=== PATIENT | female | born 1985 | race Caucasian/White ===

== ENCOUNTER 2016-05-02 14:24 | Emergency (ER) | payer SELFPAY ==
[~2016-05-02] VITALS: Ht 167.6 cm; Wt 70.0 kg
[2016-05-02 14:31] VITALS: Ht 167.6 cm; Wt 70.0 kg
[2016-05-02] MEDS ORDERED: SOD CHLORIDE 0.9% 1,000 ML IV STA (14:47)
[2016-05-02] MEDS ORDERED: morphine 2 MG INJ IV STA (14:47)
[2016-05-02] MEDS ORDERED: ACETAMINOPHEN 500 MG TAB PO STA (14:47)
[2016-05-02] MEDS ORDERED: ONDANSETRON 4 MG INJ IV STA ×2 (14:47→14:50)
--- NOTE | 2016-05-02 14:50 | ERD ---
ER Documentation Chief Complaint Date/Time DATE: 05/02/16 TIME: 14:48 Chief Complaint bilateral flank pain and vomiting since last night HPI 30-year-old female otherwise healthy comes in with right-sided flank pain, nausea, vomiting fever that started last night. Patient reports nonbloody nonbilious emesis multiple times throughout the night associated with right flank pain. Her pain is rated 10 out of 10, achy, constant. She denies cough, URI symptoms. ROS All systems reviewed and are negative except as per history of present illness. Medications Home Meds Active Scripts Ondansetron (Ondansetron Odt) 4 Mg Tab.rapdis, 4 MG PO Q6H Y for NAUSEA AND/OR VOMITING, #15 TAB Prov:JODEE STRONG PA-C 05/02/16 Allergies Allergies: Coded Allergies: No Known Allergy (Unverified , 05/02/16) PMhx/Soc Medical and Surgical Hx: pt denies Medical Hx History of Surgery: Yes (tubes in bilat ears) Hx Alcohol Use: No Hx Substance Use: No Hx Tobacco Use: No Smoking Status: Never smoker Physical Exam Vitals Vital Signs Date Time Temp Pulse Resp B/P Pulse Ox O2 Delivery O2 Flow Rate FiO2 05/02/16 14:31 100.6 121 20 131/83 99 Physical Exam General: Well-developed, well-nourished. The patient appears in no acute distress. HEENT: Head is normocephalic, atraumatic. No scleral icterus. Pupils are equal , round, and reactive. Oral mucous membranes are moist. No pharyngeal erythema. Neck: Supple. Nontender. Lungs: Clear to auscultation. Normal air movement. Heart: Regular rate and rhythm. S1 and S2 are normal. No murmurs, gallops, or rubs. Abdomen: Soft, nontender, nondistended. Bowel sounds are normoactive. Back: CVA tenderness on the right side. Extremities: No clubbing or cyanosis. Normal pulses. Moving extremities x 4. No weakness. Neurologic: Alert and oriented 3. No focal deficits. Skin: Normal turgor. No rash or lesions. Result Diagram: 05/02/16 1523 05/02/16 1523 Results 24 hrs Laboratory Tests Test 05/02/16 15:00 05/02/16 15:23 Urine Bilirubin NEGATIVE Urine Clarity SLIGHTLY CLOUDY Urine Color LT. YELLOW Urine Glucose NEGATIVE% Urine Hemoglobin NEGATIVE Urine Ketones NEGATIVE Urine Leukocyte Esterase NEGATIVE Urine Nitrite NEGATIVE Urine Specific Olga 1.020 Urine Total Protein NEGATIVE Urine Urobilinogen 0.2 E.U./dL Urine pH 6.0 Alanine Aminotransferase (ALT/SGPT) 18IU/L Albumin 4.2g/dl Albumin/Globulin Ratio 1.27 Alkaline Phosphatase 49IU/L Anion Gap 20 Aspartate Amino Transf (AST/SGOT) 25IU/L Basophils # 0.010^3/ul Basophils % 0.2% Blood Morphology Comment Blood Urea Nitrogen 14mg/dl Calcium Level 8.6mg/dl Carbon Dioxide Level 24mmol/L Chloride Level 97mmol/L Creatinine 0.64mg/dl Differential Comment AUTO w/SCAN Direct Bilirubin 0.00mg/dl Eosinophils # 0.010^3/ul Eosinophils % 0.0% Globulin 3.30g/dl Glucose Level 122mg/dl Hematocrit 41.5% Hemoglobin 14.2g/dl Indirect Bilirubin 0.5mg/dl Lipase 24U/L Lymphocytes # 0.310^3/ul Lymphocytes % 3.3% Mean Corpuscular Hemoglobin 30.6pg Mean Corpuscular Hemoglobin Concent 34.2g/dl Mean Corpuscular Volume 89.3fl Mean Platelet Volume 11.2fl Monocytes # 0.410^3/ul Monocytes % 4.5% Neutrophils # 8.210^3/ul Neutrophils % 92.0% Nucleated Red Blood Cells # 0.010^3/ul Nucleated Red Blood Cells % 0.0/100WBC Platelet Count 82601^3/UL Potassium Level 3.7mmol/L Red Blood Count 4.6410^6/ul Red Cell Distribution Width 12.5% Sodium Level 137mmol/L Total Bilirubin 0.5mg/dl Total Protein 7.5g/dl White Blood Count 8.910^3/ul Current Medications Medications (Trade) Dose Ordered Sig/Deandre Route PRN Reason Start Time Stop Time Status Last Admin Dose Admin Sodium Chloride (NS) 1,000 ml @ 1,000 mls/hr Q1H STAT IV 05/02/16 14:47 05/02/16 15:46 DC 05/02/16 15:24 Morphine Sulfate (morphine) 2 mg ONCE STAT IV 05/02/16 14:47 05/02/16 15:40 DC Ondansetron HCl (Zofran Inj) 4 mg ONCE STAT IV 05/02/16 14:47 05/02/16 14:49 DC 05/02/16 15:30 Acetaminophen 1000 mg 1,000 mg ONCE STAT PO 05/02/16 14:47 05/02/16 14:49 DC 05/02/16 15:30 Sodium Chloride (NS) 1,000 ml @ 1,000 mls/hr Q1H ONCE IV 05/02/16 15:00 05/02/16 15:59 DC 05/02/16 15:30 Ondansetron HCl (Zofran Inj) 4 mg ONCE STAT IV 05/02/16 14:50 05/02/16 14:51 DC 05/02/16 15:30 Ketorolac Tromethamine (Toradol) 30 mg ONCE STAT IV 05/02/16 15:39 05/02/16 15:40 DC 05/02/16 15:50 Procedures/MDM ED course: Patient had a line established, blood in urine were obtained. She was given Toradol 30 mg, Zofran 4 mg IV, 2 L of NS IV. She was given Tylenol 1 g p.o. Recheck pulse is 82 MDM: 30-year-old female comes in with fever nausea vomiting that started last night. Patient states that she also had right-sided back pain with this that is constant. She was given fluids, Tylenol, Toradol and was feeling much better. Reassessment show that she had no flank pain. I offered the patient an x-ray of the chest to rule out pneumonia as well as CT abdomen and pelvis to evaluate the kidneys, however she states that she is feeling pain-free at this time and does not feel she needs further imaging. Influenza a and B were both negative. Patient's examination shows a soft abdomen, I doubt bowel obstruction , ovarian torsion, appendicitis, acute cholangitis, pain pancreatitis. She is likely presenting with a viral syndrome that is self-limiting. She was asked to stick to a clear liquid diet and slow advancement to solid foods. She will be given a prescription for Zofran and asked to take Tylenol and increase fluids at home. Departure Diagnosis: Primary Impression: Vomiting Condition: JODEE Patton PA-C May 02, 2016 14:50
[2016-05-02] MEDS ORDERED: SOD CHLORIDE 0.9% 1,000 ML IV ONE (15:00)
[2016-05-02 15:14] LABS: URINE BILIRUBIN (Dip) NEGATIVE (NEGATIVE); URINE BLOOD (Dip) NEGATIVE (NEGATIVE); URINE COLOR LT. YELLOW (YELLOW); URINE GLUCOSE (Dip) NEGATIVE (NEGATIVE); URINE KETONES (Dip) NEGATIVE (NEGATIVE); URINE LEUKOCYTE ESTERASE (Dip) NEGATIVE (NEGATIVE); URINE NITRITE (Dip) NEGATIVE (NEGATIVE); URINE UROBILINOGEN (Dip) 0.2 E.U./dL (0.1-1.0)
[2016-05-02 15:23] LABS: ADD UMIC NO; URINE TOTAL PROTEIN (Dip) NEGATIVE (NEGATIVE)
[2016-05-02 15:38] LABS: BASOPHILS % 0.2 % (0.0-2.0); HEMATOCRIT 41.5 % (37.0-47.0); HEMOGLOBIN 14.2 g/dl (12.0-16.0); LYMPHOCYTES # 0.3 10^3/ul (0.8-2.9); LYMPHOCYTES % 3.3 % (15.0-51.0); MEAN CORPUSCULAR HEMOGLOBIN 30.6 pg (29.0-33.0); MEAN CORPUSCULAR HGB CONC 34.2 g/dl (32.0-37.0); MEAN CORPUSCULAR VOLUME 89.3 fl (82.0-101.0); MEAN PLATELET VOLUME 11.2 fl (7.4-10.4); MONOCYTE # 0.4 10^3/ul (0.3-0.9); MONOCYTES % 4.5 % (0.0-11.0); NEUTROPHIL # 8.2 10^3/ul (1.6-7.5); PLATELET COUNT 153 10^3/UL (140-440); RED BLOOD COUNT 4.64 10^6/ul (4.20-5.40); RED CELL DISTRIBUTION WIDTH 12.5 % (11.5-14.5); UNCORRECTED WBC 8.9 10^3/ul (4.8-10.8); WHITE BLOOD COUNT 8.9 10^3/ul (4.8-10.8)
[2016-05-02 15:39] LABS: CONDITION 1; LH ANALYZER COMMENTS 1
[2016-05-02] MEDS ORDERED: KETOROLAC 30 MG INJ IV STA (15:39)
[2016-05-02 15:50] LABS: ALBUMIN 4.2 g/dl (3.3-4.9)
[2016-05-02 15:51] LABS: POTASSIUM 3.7 mmol/L (3.5-5.1)
[2016-05-02 15:53] LABS: ALBUMIN/GLOBULIN RATIO 1.27; BILIRUBIN,INDIRECT 0.5 mg/dl (0-1.1); BILIRUBIN,TOTAL 0.5 mg/dl (0.2-1.3); CREATININE 0.64 mg/dl (0.44-1.00); TOTAL PROTEIN 7.5 g/dl (6.1-8.1)
[2016-05-02 15:54] LABS: CALCIUM 8.6 mg/dl (8.4-10.2)
[2016-05-02] MEDS ORDERED: ONDA4TAB14 PO (17:02)
[2016-05-02 18:22] VITALS: BP 99/55; PULSE 90; RESP 18; TEMP 98.8
== END 2016-05-02 18:23 | disposition home or self-care (01) ==
LOC: FTE 14:24
DX: R11.10 Vomiting, unspecified (principal)
CPT/HCPCS: 36415; 80053; 81003; 83690; 85025; 87400; 96374; 96375; 99284; J1885; J2405; J7030

== ENCOUNTER 2017-02-03 06:00 | Inpatient (IN) | payer OTHER ==
[~2017-02-03] VITALS: Ht 160 cm; Wt 72.7 kg
[~2017-02-03 06:00] MED LIST: ONDA4TAB14 PO
[2017-02-03 06:41] VITALS: Ht 160 cm; Wt 72.7 kg
[2017-02-03] MEDS ORDERED: LACTATED RINGER'S 1,000 ML IV PRN (06:45)
[2017-02-03] MEDS: LACTATED RINGER'S 1,000 ML IV SCH ×5 (06:56→20:32)
[2017-02-03] MEDS ORDERED: OXYTOCIN 30 UNITS/LR 500 ML IV PRN (07:00)
[2017-02-03] MEDS ORDERED: LIDOCAINE 1% (MPF) 30 ML INJ INJ PRN (07:00)
[2017-02-03] MEDS ORDERED: OXYTOCIN 30 UNITS/LR 500 ML IV SCH ×3 (07:00→07:30)
[2017-02-03] MEDS ORDERED: BUTORPHANOL 2 MG INJ IV PRN (07:00)
[2017-02-03] MEDS ORDERED: MISOPROSTOL 200 MCG TAB PR PRN (07:00)
[2017-02-03] MEDS ORDERED: CARBOPROST 250 MCG INJ IM PRN (07:00)
[2017-02-03] MEDS ORDERED: METHYLERGONOVINE 0.2 MG INJ IM PRN (07:00)
[2017-02-03 07:36] LABS: INR 0.8; PROTIME 11.1 Sec (12.2-14.2); PT RATIO 0.9
[2017-02-03 07:37] LABS: PARTIAL THROMBOPLASTIN TIME 30.6 Sec (25.0-35.0)
[2017-02-03 08:23] LABS: ABNORMAL IP MESSAGE 1; BASOPHILS % 0.5 % (0.0-2.0); EOSINOPHILS # 0.5 10^3/ul (0.0-0.5); EOSINOPHILS % 5.1 % (0.0-7.0); HEMATOCRIT 33.4 % (37.0-47.0); HEMOGLOBIN 10.5 g/dl (12.0-16.0); LYMPHOCYTES # 1.3 10^3/ul (0.8-2.9); LYMPHOCYTES % 14.6 % (15.0-51.0); MEAN CORPUSCULAR HEMOGLOBIN 26.7 pg (29.0-33.0); MEAN CORPUSCULAR HGB CONC 31.4 g/dl (32.0-37.0); MEAN PLATELET VOLUME 13.8 fl (7.4-10.4); MONOCYTE # 0.7 10^3/ul (0.3-0.9); MONOCYTES % 8.2 % (0.0-11.0); NEUTROPHIL # 6.3 10^3/ul (1.6-7.5); PLATELET COUNT 116 10^3/UL (140-415); RED BLOOD COUNT 3.93 10^6/ul (4.20-5.40); RED CELL DISTRIBUTION WIDTH 14.6 % (11.5-14.5); WHITE BLOOD COUNT 8.8 10^3/ul (4.8-10.8)
[2017-02-03 08:24] LABS: POSITIVE DIFF @See below
[2017-02-03] MEDS ORDERED: FENTAnyl 2MCG/ML-ROPIV 0.2% 100 ML ONE (15:32)
[2017-02-03] MEDS ORDERED: DIPHENHYDRAMINE 50 MG INJ IV PRN (17:00)
[2017-02-03] MEDS ORDERED: FENTAnyl 2MCG/ML-ROPIV 0.2% 100 ML BAG EPI SCH (17:00)
[2017-02-03] MEDS ORDERED: ONDANSETRON 4 MG INJ IV PRN (17:00)
[2017-02-03] MEDS ORDERED: NALOXONE (0.4 MG/ML) INJ IV PRN (17:00)
[2017-02-03] MEDS ORDERED: DEXTROSE 5%-LR 1,000 ML IV SCH (22:00)
[2017-02-04] VITALS (7 sets, daily range): BP systolic 93–110; BP diastolic 54–65; PULSE 65–85; RESP 18–20
--- NOTE | 2017-02-04 | LDN ---
Date/Time of Note Date/Time of Note DATE: 02/03/17 TIME: 23:58 Delivery Summary of a viable baby boy [id number] grams or 8# 7 oz, 21" long, and with Apgars of 8/9. Weeks of Gestation 39w 2d Placenta Delivered: Spontaneously Meconium: none Episiotomy: No Perineal laceration: 2 Laceration repair: Second degree perineal laceration repaired with 2-0 chromic. Anesthesia type: Epidural Estimated blood loss: 300 Sponge & Needle done & correct: Yes All needle counts correct: Yes Any foreign bodies felt in the: No (vagina) Problems: Delivery Information Sex Infant Sex: male Apgars 1 Minute: 8 5 Minute: 9 Suctioning Nose & mouth suctioned at blanco: Yes Delee suction performed: No Umbilical Cord Umbilical cord with: 3 Vessels Cord presentations: no nuchal cord Cord Blood was obtained: Yes Mother & Baby Disposition Disposition Mom & Baby to Maternity; Good: Yes Baby to NICU: No LORI MATHUR MD Feb 04, 2017 00:00
[2017-02-04] MEDS: LACTATED RINGER'S 1,000 ML IV* SCH ×3 (00:06→10:25)
--- NOTE | 2017-02-04 00:06 | HP ---
Date/Time of Note Date/Time of Note DATE: 02/04/17 TIME: 00:00 OB - History Hx of Present Free Text/Dictation 31 y.o. A1 with an IUP at 39w 2d brought in for induction as she has gestational thrombocytopenia and during her last labor she was not able to have an epidural due to low platelets so we wanted to be preemptive. Last Menstrual Period: May 04, 2016 Estimated Due Date: Feb 08, 2017 : 3 Para: 1 Spontaneous : 1 Care: Good Care Obstetrical Complications: None Medical Complications: Other (Gestational thrombocytopenia.) Past Family/Social History * Past Medical, Surgical, Family and Obstetric Histories reviewed from chart. Blood Type: A+ Rubella: immune RPR/VDRL: Negative GBS Status: Negative HBsAG: Negative OB Admission Exam Vital Signs Vital Signs T=98.4 BP 115/75 Physical Exam HEENT: WNL Heart: Rhythm Normal Lungs: Clear Abdomen: WNL Extremities: Normal Reflexes: Normal Cervical Dilatation: 2cm Effacement: 50% Station: -3 Membranes: Intact Amniotic Fluid: Clear Heart Rate: 150's Accelerations: Accelerations Present Decelerations: No Decelerations Varibility: Moderate Contractions on Admission: 6-10 Minutes Apart Last 72 hours Lab Results CBC & BMP 02/03/17 07:59 OB Assessment/Plan Reason for admission: induction of labor Other Assessment: Gestational thrombocytopenia. Plan: Induction Induction Method: per Pitocin Protocol Other plan: Epidural whenever the pain necessitates it! LORI MATHUR MD Feb 04, 2017 00:06
[2017-02-04] MEDS ORDERED: LANOLIN 7 GM TUBE TOP PRN (00:30)
[2017-02-04] MEDS ORDERED: CARBOPROST 250 MCG INJ IM PRN (00:30)
[2017-02-04] MEDS ORDERED: WITCH HAZEL/GLYCERIN PAD PR PRN (00:30)
[2017-02-04] MEDS ORDERED: METHYLERGONOVINE 0.2 MG INJ IM PRN (00:30)
[2017-02-04] MEDS ORDERED: BENZOCAINE 20% 56 ML SPRAY TOP PRN (00:30)
[2017-02-04] MEDS ORDERED: OXYTOCIN 30 UNITS/LR 500 ML IV PRN (00:30)
[2017-02-04] MEDS ORDERED: MISOPROSTOL 200 MCG TAB PR PRN (00:30)
[2017-02-04] MEDS: HYDROCODONE/APAP (5/325) TAB PO PRN ×3 (02:41→16:31)
[2017-02-04] MEDS: OXYTOCIN 30 UNITS/LR 500 ML IV SCH ×2 (03:50→07:52)
[2017-02-04] MEDS: IBUPROFEN 600 MG TAB PO SCH ×4 (05:46→23:35)
[2017-02-04] MEDS: RANITIDINE 150 MG TAB PO SCH ×2 (09:00→21:00)
--- NOTE | 2017-02-04 17:36 | QN ---
Documentation Comment Progress Note. PPD #1 Pt feels good. w/o a problem. Is fairly tired. T=98.8 BP 101/62 Fundus firm. Lochia Moderate. Ext NT, 1+ edema. P: Continue care. Plan d/c tomorrow. LORI MATHUR MD Feb 04, 2017 17:36
[2017-02-04] MEDS ORDERED: INFLUENZA VIRUS VACCINE 0.5 ML (DISPENSING) IM* ONE (23:30)
[2017-02-05 04:05] VITALS: BP 112/74; PULSE 68; RESP 17
[2017-02-05] MEDS: IBUPROFEN 600 MG TAB PO SCH ×2 (05:41→12:05)
[2017-02-05 08:00] VITALS: BP 103/61; PULSE 70; RESP 19
[2017-02-05] MEDS ORDERED: DIPHTH/TET/ACEL PERTUSS (ADULT) 0.5 ML VIAL IM* ONE (09:00)
[2017-02-05] MEDS ORDERED: INFLUENZA VIRUS VACCINE 0.5 ML (DISPENSING) IM* ONE (09:00)
[2017-02-05] MEDS: RANITIDINE 150 MG TAB PO SCH (09:00)
[2017-02-05 10:35] LABS: ABNORMAL IP MESSAGE 1; BASOPHILS % 0.4 % (0.0-2.0); EOSINOPHILS # 0.6 10^3/ul (0.0-0.5); EOSINOPHILS % 6.4 % (0.0-7.0); HEMATOCRIT 32.9 % (37.0-47.0); HEMOGLOBIN 9.9 g/dl (12.0-16.0); LYMPHOCYTES # 1.1 10^3/ul (0.8-2.9); LYMPHOCYTES % 11.4 % (15.0-51.0); MEAN CORPUSCULAR HEMOGLOBIN 26.6 pg (29.0-33.0); MEAN CORPUSCULAR HGB CONC 30.1 g/dl (32.0-37.0); MEAN CORPUSCULAR VOLUME 88.4 fl (82.0-101.0); MEAN PLATELET VOLUME 13.1 fl (7.4-10.4); MONOCYTE # 0.7 10^3/ul (0.3-0.9); MONOCYTES % 7.6 % (0.0-11.0); NEUTROPHIL # 7.1 10^3/ul (1.6-7.5); NEUTROPHILS % 73.7 % (39.0-77.0); PLATELET COUNT 109 10^3/UL (140-415); RED BLOOD COUNT 3.72 10^6/ul (4.20-5.40); RED CELL DISTRIBUTION WIDTH 14.8 % (11.5-14.5); WHITE BLOOD COUNT 9.7 10^3/ul (4.8-10.8)
[2017-02-05 16:10] VITALS: BP 98/62; PULSE 72; RESP 19
--- NOTE | 2017-02-05 17:25 | PD.PPDC ---
[facility] Discharge Instruction Condition Patient Condition: Good Diet Diet: Resume Regular Diet Activity/Restrictions Activity: Normal Activity May Shower Restrictions: No Sexual Activity Nothing in the Vagina No [place] No Tampons, douche Follow-up Follow-up with Physician: 6, Week/Weeks Return to clinic for [facility] Instructions: Fever greater than 101 Chills Worsening abdominal pain Excessive Vaginal Bleeding OB Instructions: Breast Tenderness Depression LORI MATHUR MD Feb 05, 2017 17:25
--- NOTE | 2017-02-05 17:29 | DS ---
Date/Time of Note Date/Time of Note DATE: 02/05/17 TIME: 17:27 Obstetrical Discharge Record Final Diagnosis Final Diagnosis: Term delivered Vaginal Delivery Obstetrical Delivery: Spontaneous, Laceration, Repaired Complications Other (gestational thrombocytopenia) Augmentation: Yes Induction: Yes Condition on Discharge Physical Assessment Last Vitals: T=97.8 BP 103/61 Voiding: Yes Bowel Movement: Yes Breast: Filling Fundus: Firm Episiotomy: Laceration intact Calf Tenderness: No Patient Condition: Good LORI MATHUR MD Feb 05, 2017 17:29
[2017-02-06] MEDS ORDERED: DIPHTH/TET/ACEL PERTUSS (ADULT) 0.5 ML VIAL IM* ONE (09:00)
== END 2017-02-05 18:55 | disposition home or self-care (01) | DRG 775 ==
LOC: L-D 06:05 → PP1 02-04 01:51
PROVIDERS: ADMIT Obstetrics & Gynecology; ATTEND Obstetrics & Gynecology
PROC: 0KQM0ZZ Repair Perineum Muscle, Open Approach (ICD-10-PCS; 2017-02-03)
PROC: 3E0P3VZ Introduction of Hormone into Female Reproductive, Percutaneous Approach (ICD-10-PCS; 2017-02-03)
PROC: 10E0XZZ Delivery of Products of Conception, External Approach (ICD-10-PCS; principal; 2017-02-03 06:00)
PROC: 3E00X4Z Introduction of Serum, Toxoid and Vaccine into Skin and Mucous Membranes, External Approach (ICD-10-PCS; 2017-02-05)
DX: O70.1 Second degree perineal laceration during delivery (principal); Z37.0 Single live birth; O99.12 Other diseases of the blood and blood-forming organs and certain disorders involving the immune mechanism complicating childbirth; Z3A.39 39 weeks gestation of pregnancy; Z23 Encounter for immunization
CPT/HCPCS: 62319; 85025; 85610; 85730; 86592; 86900; 86901; 90686; 90715; 99464; J1200; J2590; J3010; J7120; J7121